=== PATIENT | female | born 1965 | race African-American/Black ===

== ENCOUNTER 2020-12-08 20:08 | Emergency (ER) | payer MEDICAID ==
[~2020-12-08] VITALS: Ht 162.6 cm; Wt 76.2 kg
[2020-12-08 20:34] VITALS: BP 132/83
[2020-12-09] MEDS ORDERED: IBUP-2809 PO (00:06)
== END 2020-12-09 00:13 | disposition home or self-care (01) ==
LOC: MED 20:08
DX: M79.10 Myalgia, unspecified site (principal); Z88.2 Allergy status to sulfonamides
CPT/HCPCS: 99282